=== PATIENT | female | born 1960 | race Caucasian/White ===

== ENCOUNTER 2021-07-20 18:00 | Emergency (ER) | payer OTHER ==
[2021-07-20] MEDS ORDERED: Aspirin 81 MG Tab.Chew PO STA (18:08)
[2021-07-20] MEDS ORDERED: Iopamidol 755 Mg/ML 100 ML Bottle IV ONE (20:25)
== END 2021-07-20 22:40 | disposition home or self-care (01) ==
LOC: FB.ED 18:00
DX: R07.89 Other chest pain (principal); F41.9 Anxiety disorder, unspecified; I10 Essential (primary) hypertension; Z88.5 Allergy status to narcotic agent
CPT/HCPCS: 36415; 71045; 71275; 80053; 83880; 84484; 85025; 85379; 85610; 85730; 93005; 93010; 99283; 99285-25; A9270-GY; Q9967